=== PATIENT | female | born 1935 | race Caucasian/White ===

== ENCOUNTER → 2022-03-24 12:42 | Outpatient (CLI) | payer MEDICARE, SELFPAY ==
--- NOTE | 2022-03-24 12:42 | US_ITS ---
FINAL REPORT CLINICAL HISTORY: US right deltoid FINDINGS: Sonographic images a of the right anterior shoulder were obtained. There is a 5.2 x 3.7 x 4.4 cm predominantly hypoechoic heterogeneous mass at the area of interest in the region of the recently vaccinated area, could represent a hematoma. There is a 2nd nodular area adjacent to it measuring 1 cm. IMPRESSION: Heterogeneous mass in the area of interest, may represent a hematoma. Reviewed, Interpreted and Dictated by Herve Cervantes III, MD Transcribed by Awilda John Authenticated and [facility]
== END ==
PROVIDERS: PCP Emergency Medicine; Visit Provider Emergency Medicine
DX: M25.411 Effusion, right shoulder (principal)
CPT/HCPCS: 76882

== ENCOUNTER → 2022-05-22 12:41 | Outpatient (CLI) | payer MEDICARE, SELFPAY ==
--- NOTE | 2022-05-22 12:42 | MM_ITS ---
PROCEDURE INFORMATION: Exam: MG Bilateral Screening 3D Mammography Exam date and time: 05/22/2022 12:57 PM Age: 86 years old Clinical indication: Screening. Her sister had breast cancer. TECHNIQUE: Imaging protocol: Bilateral Screening tomosynthesis and 2D mammography including computer-aided detection (CAD) when performed. COMPARISON: 1. MG SCN DIG BREAST TOMOSYN MESSI 05/09/2021 12:04 PM 2. MG DMSB DIGITAL MAMM-SCREEN BILATERAL 05/13/2012 9:31 AM 3. MG DMSB DIGITAL MAMM-SCREEN BILATERAL 05/10/2011 1:57 PM FINDINGS: MAMMOGRAPHY: Breast composition: The breasts are heterogeneously dense, which may obscure small masses. Mass: No suspicious mass. Architectural distortion: None. Calcifications: No suspicious calcifications. Asymmetric density: None. Skin thickening: None. Axillary adenopathy: None. IMPRESSION: No mammographic evidence of malignancy. Annual screening is recommended unless otherwise clinically indicated. ASSESSMENT: BI-RADS Category 1: Negative
== END ==
PROVIDERS: PCP Emergency Medicine; Visit Provider Emergency Medicine
DX: Z12.31 Encounter for screening mammogram for malignant neoplasm of breast (principal)
CPT/HCPCS: 77063; 77067

== ENCOUNTER 2022-05-24 11:43 | Emergency (ER) | payer MEDICARE, SELFPAY ==
[2022-05-24 12:13] VITALS: BP 144/66; PULSE 63; RESP 18; TEMP 36.8; O2SAT 97; BMI 29.9
--- NOTE | 2022-05-24 12:14 | XR_ITS ---
FINAL REPORT CLINICAL HISTORY: cough FINDINGS: Two views of the chest were obtained. The heart size and pulmonary vascularity are within normal limits. The mediastinum is normal. There is mild scarring/fibrosis. There is no pneumothorax. There are degenerative changes in both shoulders. IMPRESSION: Mild scarring/fibrosis. Reviewed, Interpreted and Dictated by Herve Cervantes III, MD Transcribed by Eleazar Ortiz Authenticated and [facility]
[2022-05-24 12:23] LABS: UTC Strep Screen (Rapid) Negative (Negative)
--- NOTE | 2022-05-24 12:30 | HMH.EDUTC ---
[facility] Disposition Clinical Impression: Viral syndrome, Exposure to COVID-19 virus Disposition: Home, Self-Care Condition on Discharge: Good Instructions: DI for COVID-19 (Suspected or Confirmed ), Preventing the Spread of Coronavirus Discharge Instructions Additional Instructions: Drink plenty of fluids. Take tylenol or ibuprofen for pain or fever. Take the medications as directed. Follow up with your regular doctor. GO TO THE ER FOR ANY WORSENING SYMPTOMS Quarantine until you know the results of your covid-19 test. Notify your school or workplace of your results and follow their instructions regarding return to work/school. Prescriptions: Benzonatate [Benzonatate 100mg cap] 100 mg PO TIDP PRN #30 cap PRN Reason: Cough Transmission Status: Received by [facility] # Azithromycin [Z-Monster 250mg Tab*] 250 mg PO UD DOSE PK #6 tab Transmission Status: Received by [facility] # Referrals: Catrachito Beyrs MD [Primary Care Provider] - Time of Disposition: 12:48 Medical Decision Making - Medical Records Medical records reviewed: No: I reviewed the patient's medical records. - Ulises Inquiry Pt receiving controlled substance: No Vital Signs: 05/24/22 12:13 05/24/22 12:50 Temperature 98.3 F 98.3 F Temperature Source Oral Pulse Rate 63 Pulse Rate [Left] 63 Respiratory Rate 18 18 Blood Pressure 144/66 H Blood Pressure [Right Arm] 144/66 H Blood Pressure Mean [Right Arm] 92 02 Sat by Pulse Oximetry 97 - Lab Data Lab results reviewed: Yes: I reviewed the patient's lab results. Lab Results 05/24/22 12:14: Strep [facility] Negative Orders (Tests/Meds): ORDERS Category Date Time Status Chest XR 2 view (NOT portable) [XR chest 2V] Stat Exams 05/24/22 12:14 Taken Strep Screen Confirmation Stat Micro 05/24/22 12:14 Received [facility] HPI - General Stated complaint: covid test Time Seen by Provider: 05/24/22 12:30 Mode of Arrival: Ambulatory Source of Information: Patient Limitations: No Limitations Description of Symptoms (Recalled from Triage Doc. by RN): patient comes in today with complaints of fever, chills, headache, body aches, cough. symptoms began over a week ago. HEENT Symptoms (Recalled from RN notes): Yes Resp Symptoms (Recalled from RN notes): Yes Skin Symptoms (Recalled from RN notes): No MS Symptoms (Recalled from RN notes): No Functional Status (Recalled from RN notes): n/a - History of Present Illness Provider Complaint: She states that for the past 2 days she has had scratchy throat, chills, and body aches. - Related Data Home Medications Medication Instructions Recorded Confirmed aspirin 81 mg tablet,delayed 81 mg PO DAILY 12/12/21 03/10/22 release cholecalciferol (vitamin D3) 25 25 mcg PO DAILY 12/12/21 03/10/22 mcg (1,000 unit) capsule timolol 0.5 % eye drops 1 drp OPHTHALMIC BID 12/12/21 03/10/22 Previous Rx's Medication Instructions Recorded levothyroxine 25 mcg capsule 25 mcg PO DAILY #90 cap 01/19/22 losartan 100 mg tablet 100 mg PO DAILY #90 tab 05/22/22 Azithromycin [Z-Monster 250mg Tab*] 250 mg PO UD DOSE PK #6 tab 05/24/22 Benzonatate [Benzonatate 100mg 100 mg PO TIDP PRN #30 cap 05/24/22 cap] Allergies Allergy/AdvReac Type Severity Reaction Status Date / Time Penicillins Allergy Verified 05/24/22 12:16 - Worker's Comp Is this a Worker's Comp case?: No [facility] History - Hepatitis A Screen Attestation statement:: This patient has been screened for Hepatitis A risk factors. I have reviewed the patient's past medical history: Yes Medical History: Reports:: Hypertension, Osteoporosis Other Medical History: Reports: Arthritis, Osteoporosis Other Surgeries: Yes: , Other Amputation: No Fractures: Yes (left ankle) - Social History Smoking Status: Never smoker Alcohol Intake: never Substance Use Type: denies use Occupational Status: retired Family Hx
[2022-05-24 12:50] VITALS: BP 144/66; PULSE 63; RESP 18; TEMP 36.8
== END 2022-05-24 12:51 | disposition home or self-care (01) ==
PROVIDERS: Emergency Provider Nurse Practitioner Family; PCP Emergency Medicine
DX: B34.9 Viral infection, unspecified (principal); R50.9 Fever, unspecified; R05.9 Cough, unspecified; J02.9 Acute pharyngitis, unspecified; Z20.822 Contact with and (suspected) exposure to COVID-19
CPT/HCPCS: 71046; 87880; 99212; C9803; G0463; U0003; U0005

== ENCOUNTER → 2022-06-05 05:58 | Outpatient (CLI) | payer MEDICARE, SELFPAY ==
[2022-06-05 18:16] LABS: Basophils # 0.1 K/mm3 (0-0.2); Eosinophils # 0.2 K/mm3 (0.0-0.4); Eosinophils % 2.8 % (0.1-12.0); Hematocrit 42.5 % (37.0-47.0); Hemoglobin 13.5 g/dL (12.2-16.2); Mean Corpuscular HGB Conc 31.7 g/dL (31.8-35.4); Mean Corpuscular Hemoglobin 30.7 pg (27.0-31.2); Mean Corpuscular Volume 96.8 fl (81-99); Mean Platelet Volume 9.3 fl (7.4-10.4); Monocytes # 0.6 K/mm3 (0.1-1.0); Monocytes % 7.5 % (1.7-9.3); Neutrophils % 63.7 % (37.0-80.0); Platelet Count 315 K/mm3 (142-424); Red Blood Count 4.39 M/mm3 (4.20-5.40); White Blood Count 7.8 K/mm3 (4.8-10.8)
[2022-06-05 19:01] LABS: Alanine Aminotransferase 18 U/L (12-78); Albumin Level 3.9 g/dl (3.5-5.0); Albumin/Globulin Ratio 1.4 (1.1-1.8); Alkaline Phosphatase 132 U/L (38-126); Aspartate Amino Transferase 36 U/L (14-36); Bilirubin,Total 0.3 mg/dl (0.2-1.3); Blood Urea Nitrogen 17 mg/dl (7-17); Calcium 9.4 mg/dl (8.4-10.2); Carbon Dioxide 28 mmol/L (22.0-30.0); Chloride 105 mmol/L (98-107); Chol/HDL Ratio 3.6 (1-3.5); Cholesterol 166 mg/dl (140-200); Estimated Glomerular Filt Rate 59 ml/min (>60); GFR (African American) 72 ML/MIN (>60); Globulin 2.8 g/dL (1.3-3.2); Glucose 83 mg/dl (74-100); HDL Cholesterol 46 mg/dl (40-60); Sodium 138 mmol/L (136-145); Total Protein,Serum 6.7 g/dl (6.3-8.2); Triglycerides 151 mg/dl (30-150); VLDL Cholesterol 30 mg/dL (0-40)
[2022-06-05 19:17] LABS: Hemoglobin A1C 5.8 % (4.0-6.0)
[2022-06-05 19:18] LABS: Free T4 (Free Thyroxine) 1.13 ng/dl (0.78-2.19)
[2022-06-05 19:32] LABS: Thyroid Stimulating Hormone 2.43 uIU/mL (0.465-4.68)
[2022-06-07 09:46] LABS: Direct LDL Cholesterol 86 mg/dL (100-129)
== END ==
PROVIDERS: PCP Emergency Medicine; Visit Provider Emergency Medicine
DX: R35.0 Frequency of micturition (principal); B34.9 Viral infection, unspecified; E07.9 Disorder of thyroid, unspecified; I10 Essential (primary) hypertension; E11.9 Type 2 diabetes mellitus without complications; E55.9 Vitamin D deficiency, unspecified
CPT/HCPCS: 80053; 80061; 82306; 83036; 84439; 84443; 85025; 87086; 87088; 87186

== ENCOUNTER → 2023-01-09 11:40 | Outpatient (CLI) | payer MEDICARE, SELFPAY ==
--- NOTE | 2023-01-09 12:18 | ECG_ITS ---
APPROVED REPORT Exam: Resting ECG HR:55 bpm ECG Measurements Heart Rate 55 AXES NH 156 P 60 QRSd 144 QRS 111 QT 437 T -16 QTc 427 Conclusion SINUS BRADYCARDIA INTRAVENTRICULAR CONDUCTION DELAY [130+ ms QRS DURATION] ABNORMAL ECG UNCONFIRMED REPORT Electronically signed by : Robert Last MD 01/09/2023 17:20:56
[2023-01-09 12:20] LABS: Basophils # 0.1 K/mm3 (0-0.2); Basophils % 0.9 % (0.1-2.0); Eosinophils # 0.2 K/mm3 (0.0-0.4); Eosinophils % 2.8 % (0.1-12.0); Hematocrit 39.1 % (37.0-47.0); Hemoglobin 12.5 g/dL (12.2-16.2); Lymphocytes % 23.1 % (10-50); Mean Corpuscular HGB Conc 31.9 g/dL (31.8-35.4); Mean Corpuscular Hemoglobin 30.3 pg (27.0-31.2); Monocytes # 0.6 K/mm3 (0.1-1.0); Monocytes % 6.9 % (1.7-9.3); Neutrophils # 5.6 K/mm3 (1.8-7.8); Neutrophils % 66.4 % (37.0-80.0); Platelet Count 285 K/mm3 (142-424); Red Blood Count 4.11 M/mm3 (4.20-5.40); White Blood Count 8.5 K/mm3 (4.8-10.8)
[2023-01-09 13:15] LABS: Alanine Aminotransferase 18 U/L (12-78); Albumin Level 3.8 g/dl (3.5-5.0); Albumin/Globulin Ratio 1.5 (1.1-1.8); Alkaline Phosphatase 103 U/L (38-126); Anion Gap 8.6 mEq/L (5-15); Aspartate Amino Transferase 29 U/L (14-36); Bilirubin,Total 0.6 mg/dl (0.2-1.3); Blood Urea Nitrogen 20 mg/dl (7-17); Calcium 8.8 mg/dl (8.4-10.2); Carbon Dioxide 29 mmol/L (22.0-30.0); Chloride 104 mmol/L (98-107); Estimated Glomerular Filt Rate 68 ml/min (>60); GFR (African American) 82 ML/MIN (>60); Globulin 2.6 g/dL (1.3-3.2); Glucose 92 mg/dl (74-100); Potassium 4.6 mmoL/L (3.5-5.1); Sodium 137 mmol/L (136-145); Total Protein,Serum 6.4 g/dl (6.3-8.2)
== END ==
PROVIDERS: PCP Emergency Medicine; Visit Provider Student in an Organized Health Care Education/Training Program
DX: Z01.818 Encounter for other preprocedural examination (principal); H69.80 Other specified disorders of Eustachian tube, unspecified ear
CPT/HCPCS: 36415; 80053; 85025; 93005

== ENCOUNTER 2023-01-16 07:26 | Day surgery (SDC) | payer MEDICARE, SELFPAY ==
[2023-01-15 10:22] VITALS: BMI 28.8
--- NOTE | 2023-01-15 10:28 | SUR.PREOP ---
Reviewed EKG w/ R. Juan Daniel and Ally Snowden CRNA. Determined ok to proceed w/ procedure and to instruct pt to f/u with PMD for possible further treatment. Notified pt. of this during preop phone call, pt verbalized understanding.
[2023-01-16] VITALS (9 sets, daily range): BP systolic 141–171; BP diastolic 71–88; PULSE 54–64; RESP 12–18; TEMP 36.1–36.7; O2SAT 95–97
--- NOTE | 2023-01-16 08:16 | EXP.ANES.CKL ---
[facility] Disclaimer: The information contained in this section may have been updated after the patient was seen, as this information can be updated by other users. Medical History Fluid level behind tympanic membrane of both ears HTN (hypertension) Hypothyroid Perforated nasal septum Surgical History H/O left knee surgery History of back surgery Family History Other Family history of cancer Family history of heart disease Social History Smoking Status: Never smoker alcohol intake: never substance use type: denies use current occupational status: retired Travel in the last 8 weeks: None [facility] Anesthesia Checklist Patient Identification Patient Identification: Arm Band Structural Data Admitted From: Home Planned Operative Procedure/s: BMT Consent for Planned Operative Procedure(s) Verified: Yes Verified Documents: Surgical Consent NPO Status Verified Time NPO: 00:00 Additional verifications Anesthesia Reactions: No Hx Blood Transfusions: No Blood Transfusion Reaction: No Airway Assessment C-Spine Mobility Assessed: Yes TMJ Mobility Assessed: Yes Dentition: Good Dentition Neurological Assessment Level of Consciousness: Awake and Alert Anesthesia Plan Anesthesia Risk discussed: Yes Anesthesia Plan: Verified ASA Class: II Anesthesia Type: General
--- NOTE | 2023-01-16 09:24 | EXP.OP.NOTE ---
Date of procedure: 01/16/23 Pre-op Diagnosis:: serous otitis media Post-op Diagnosis:: same Procedure performed:: bilateral myringotomy with t-tubes Surgeon:: Wayne Rosas MD Anesthesia: LMA Estimated blood loss (mL): 0 Operative findings:: bilateral serous effusions Operative note:: The patient was brought to the OR and laid?in supine position. Mask anesthesia was induced. Patient was prepped and draped in the usual fashion. First in the left ear, myringotomy was made in the anterior-inferior quadrant. A serous?effusion was suctioned from the middle ear space. T-tube was placed and then ear?drops was instilled into the ear. Then, I turned my attention towards the right ear. Again, a myringotomy was made in the anterior-inferior quadrant. A serous?effusion was suctioned from the middle ear space.?T- tube was placed and then?ear?drops was instilled into the ear. Patient was then turned back over to anesthesia to be awoken. Condition: stable Disposition: PACU Complications:: none
--- NOTE | 2023-01-16 09:25 | EXP.ANES.I ---
[facility] Anesthesia Record Part I Anesthesia Record I Intake, IV Amount: 600 Estimated blood loss (mL): 0 Urine output (mL): 0 Blood Pressure: 143/84 SaO2: 96 Pulse Rate: 60 Respiratory Rate: 12 Temperature: 97.2 F Patient is:: Awake and Stable Stable to PACU at:: 09:25
--- NOTE | 2023-01-18 07:16 | P.PNANES_ITS ---
[facility] Anesthesia Record Part II Anesthesia Record Part II Discharge Time: 09:55 Destination: Surgical Day Care (OP Surgery) PACU nurse assessment reviewed?: Yes Patient Condition:: Good Anesthesia Complications:: None Swallowing reflex intact?: Yes Cyanosis?: No Blood Pressure: 163/85 Pulse Rate: 62 Temperature: 98 F Mental Status: Alert & Oriented Pain level:: 0 Nausea and/or vomitting:: None Intake, IV Amount: 0
[2023-01-18 07:17] VITALS: BP 163/85; PULSE 62; TEMP 36.6
== END 2023-01-16 10:23 | disposition home or self-care (01) ==
PROVIDERS: PCP Emergency Medicine; Visit Provider Student in an Organized Health Care Education/Training Program
DX: H65.93 Unspecified nonsuppurative otitis media, bilateral (principal)
CPT/HCPCS: 69436

== ENCOUNTER → 2023-05-31 12:17 | Outpatient (CLI) | payer MEDICARE, SELFPAY ==
--- NOTE | 2023-05-31 12:17 | MM_ITS ---
PROCEDURE INFORMATION: Exam: MG Bilateral Screening 3D Mammography Exam date and time: 05/31/2023 12:53 PM Age: 87 years old Clinical indication: Screening examination TECHNIQUE: Imaging protocol: Bilateral Screening tomosynthesis and 2D mammography including computer-aided detection (CAD) when performed. COMPARISON: 1. MG MM DIG SCREENING MAMM BI W/CAD 05/22/2022 12:57 PM 2. MG SCN DIG BREAST TOMOSYN MESSI 05/09/2021 12:04 PM FINDINGS: MAMMOGRAPHY: Breast composition: The breasts are heterogeneously dense, which may obscure small masses. Mass: None. Architectural distortion: None. Calcifications: No suspicious calcifications. Asymmetric density: None. Skin thickening: None. Axillary adenopathy: None. IMPRESSION: No mammographic evidence of malignancy. Annual screening is recommended unless otherwise clinically indicated. ASSESSMENT: BI-RADS Category 1: Negative
== END ==
PROVIDERS: PCP Emergency Medicine; Visit Provider Emergency Medicine
DX: Z12.31 Encounter for screening mammogram for malignant neoplasm of breast (principal)
CPT/HCPCS: 77063; 77067

== ENCOUNTER 2023-10-31 08:15 | Outpatient (CLI) | payer MEDICARE, SELFPAY ==
--- NOTE | 2023-10-31 08:34 | XR_ITS ---
FINAL REPORT CLINICAL HISTORY: abnormal chest xray..cough COMPARISON: 05/24/2022 FINDINGS: Two views of the chest were obtained. The heart size and pulmonary vascularity are within normal limits. The mediastinum is normal. No acute pulmonary abnormality is identified. There is no pneumothorax. There is an S-shaped curvature of the thoracolumbar spine and degenerative change in both shoulders. IMPRESSION: No active cardiopulmonary disease. Reviewed, Interpreted and Dictated by Herve Cervantes III, MD Transcribed by Tila Damon Authenticated and [facility]
[2023-10-31 08:39] LABS: Basophils # 0.1 K/mm3 (0-0.2); Basophils % 0.6 % (0.1-2.0); Eosinophils # 0.2 K/mm3 (0.0-0.4); Hemoglobin 13.5 g/dL (12.2-16.2); Lymphocytes # 1.9 K/mm3 (0.7-4.5); Lymphocytes % 23.4 % (10-50); Mean Corpuscular HGB Conc 32.1 g/dL (31.8-35.4); Mean Corpuscular Hemoglobin 30.7 pg (27.0-31.2); Mean Corpuscular Volume 95.6 fl (81-99); Monocytes # 0.5 K/mm3 (0.1-1.0); Monocytes % 6.1 % (1.7-9.3); Neutrophils # 5.3 K/mm3 (1.8-7.8); Neutrophils % 66.8 % (37.0-80.0); Platelet Count 291 K/mm3 (142-424); Red Cell Distribution Width 13.4 % (11.5-17.5); White Blood Count 7.9 K/mm3 (4.8-10.8)
--- NOTE | 2023-10-31 08:44 | CA_ITS ---
APPROVED REPORT EXAM: Comprehensive 2D, Doppler, and color-flow Echocardiogram Generator Operator Straight Bevel Gear: Constance Alva RT(R) Ht: 5 ft 5 in Wt: 174lbs BSA: 1.86 BP: 122/82 mmHg Indications: murmur, HTN 2D Dimensions LVEF (Nicole's) 57.50 % F: 54 - 74 LV Volume 104.60 mL F: 46 - 106 LV Volume Index 55.9 mL/m2 F: 29 - 61 LA Volume 58.10 mL LA Volume Index 31.07 mL/m2 (M/F) 16-34 EF AP4 64.30 % EF AP2 50.7 % EF BP 57.5 % GL Strain -20.1 % M-Mode Dimensions RVDd 2.84 cm (0.9-2.6) LA Diam 3.53 cm (1.9-4.0) LVDd 3.97 cm (3.5-5.7) LVDs 3.04 cm (3.5-5.7) IVSd 0.93 cm (0.6-1.1) PWd 0.77 cm (0.6-1.1) EF (Teich) 47.40% FS 23.40% EDV (Teich) 68.80 mL ESV (Teich) 36.20 mL LV Diastology E Decel Time 227 (160-240 msec) E/A Ratio 0.8 Mitral Valve MV E Max Jimmy. 66.0 (40-130 cm/s) MV A Velocity 78.0 (40-130 cm/s) E/A Ratio 0.84 MV PHT 66.0 ms Tricuspid Valve TR P. Velocity 254.00 cm/s RAP Estimate 10.00 mmHg RVSP 35.70 mmHg Left Ventricle The left ventricle is normal size. The left ventricular systolic function is normal. The left ventricular ejection fraction is within the normal range. There is increased LV wall thickness. There is normal LV segmental wall motion. Diastolic function is indeterminate. LVEF is 60%. Right Ventricle The right ventricle is normal size. The right ventricular systolic function is normal. Atria The left atrium is mildly dilated. The right atrium is mildly dilated. Color Doppler demonstrates possible left to right interatrial shunt. Aortic Valve The aortic valve is mildly thickened. There is no aortic valvular stenosis. Mild aortic regurgitation. Mitral Valve The mitral valve leaflets are mildly thickened. No evidence of mitral valve stenosis. Mild mitral regurgitation. Tricuspid Valve The tricuspid valve leaflets are thin and pliable. Mild tricuspid regurgitation. RVSP is normal. Pulmonic Valve The pulmonary valve is normal in structure. Mild pulmonic regurgitation. Great Vessels The aortic root is normal in size. The ascending aorta is normal in size. IVC is normal in size and collapses >50% with inspiration. Pericardium There is no pericardial effusion. Other Information Study Quality: Fair Conclusion Normal biventricular systolic function. Mild biatrial dilation. Mild AI, mild MR, mild TR, mild NM. Electronically signed by : Jazmín Lawrence MD 11/03/2023 00:38:07
[2023-10-31 09:16] LABS: Alanine Aminotransferase 21 U/L (12-78); Albumin/Globulin Ratio 1.6 (1.1-1.8); Alkaline Phosphatase 114 U/L (38-126); Anion Gap 8.6 mEq/L (5-15); Aspartate Amino Transferase 32 U/L (14-36); Bilirubin,Total 0.5 mg/dl (0.2-1.3); Blood Urea Nitrogen 16 mg/dl (7-17); Calcium 9.3 mg/dl (8.4-10.2); Carbon Dioxide 30 mmol/L (22.0-30.0); Chloride 102 mmol/L (98-107); Chol/HDL Ratio 3.5 (1-3.5); Cholesterol 173 mg/dl (140-200); Estimated Glomerular Filt Rate 59 ml/min (>60); GFR (African American) 71 ML/MIN (>60); Globulin 2.5 g/dL (1.3-3.2); Glucose 98 mg/dl (74-100); HDL Cholesterol 49 mg/dl (40-60); Potassium 4.6 mmoL/L (3.5-5.1); Sodium 136 mmol/L (136-145); Total Protein,Serum 6.5 g/dl (6.3-8.2); Triglycerides 85 mg/dl (30-150); VLDL Cholesterol 17 mg/dL (0-40)
[2023-10-31 09:27] LABS: Direct LDL Cholesterol 90.07 mg/dL (100-129)
[2023-10-31 09:47] LABS: Thyroid Stimulating Hormone 2.29 uIU/mL (0.465-4.68)
== END 2023-10-31 23:59 ==
PROVIDERS: PCP Family Medicine; Visit Provider Family Medicine
DX: H69.80 Other specified disorders of Eustachian tube, unspecified ear (principal); E03.9 Hypothyroidism, unspecified; R93.89 Abnormal findings on diagnostic imaging of other specified body structures; R01.1 Cardiac murmur, unspecified
CPT/HCPCS: 36415; 71046; 80053; 80061; 84443; 85025; 93306

== ENCOUNTER 2024-06-05 14:41 | Outpatient (CLI) | payer MEDICARE, SELFPAY ==
--- NOTE | 2024-06-05 14:42 | MM_ITS ---
PROCEDURE INFORMATION: Exam: MG Bilateral Screening 3D Mammography Exam date and time: 06/05/2024 2:29 PM Age: 88 years old Clinical indication: Screening examination TECHNIQUE: Imaging protocol: Bilateral Screening tomosynthesis and 2D mammography including computer-aided detection (CAD) when performed. COMPARISON: 1. MG MM DIG SCREENING MAMM BI W/CAD 05/31/2023 12:53 PM 2. MG MM DIG SCREENING MAMM BI W/CAD 05/22/2022 12:57 PM FINDINGS: MAMMOGRAPHY: Breast composition: The breasts are heterogeneously dense, which may obscure small masses. Mass: No suspicious masses. Architectural distortion: None. Calcifications: No suspicious calcifications. Asymmetric density: None. Skin thickening: None. Axillary adenopathy: None. IMPRESSION: No mammographic evidence of malignancy. Annual screening is recommended unless otherwise clinically indicated. ASSESSMENT: BI-RADS Category 1: Negative
== END 2024-06-05 23:59 | disposition home or self-care (01) ==
LOC: RAD 14:42
PROVIDERS: PCP Family Medicine; Visit Provider Family Medicine
DX: Z12.31 Encounter for screening mammogram for malignant neoplasm of breast (principal)
CPT/HCPCS: 77063; 77067